=== PATIENT | female | born 1995 | race Two or more races ===

== ENCOUNTER 2021-07-19 21:37 | Emergency (ER) | payer OTHER ==
[~2021-07-19] VITALS: Ht 167.6 cm; Wt 57.6 kg
[2021-07-19] MEDS ORDERED: PRENATAL + DHA1 EAC1 PO (22:03)
== END 2021-07-20 00:03 | disposition home or self-care (01) ==
LOC: ER 21:37
DX: R10.13 Epigastric pain (principal)

== ENCOUNTER 2021-08-13 20:43 | Emergency (ER) | payer OTHER ==
[~2021-08-13] VITALS: Ht 170.2 cm; Wt 59.0 kg
[~2021-08-13 20:43] MED LIST: PRENATAL + DHA1 EAC1 PO
== END 2021-08-13 22:45 | disposition home or self-care (01) ==
LOC: ER 20:43
DX: O26.891 Other specified pregnancy related conditions, first trimester (principal); R51.9 Headache, unspecified; Z3A.13 13 weeks gestation of pregnancy

== ENCOUNTER 2021-12-28 12:00 | Outpatient (CLI) | payer OTHER | END 2021-12-28 12:44 | disposition home or self-care (01) | LOC: NST 12:00 | PROVIDERS: ATTEND Obstetrics & Gynecology | DX: Z34.83 Encounter for supervision of other normal pregnancy, third trimester (principal) ==

== ENCOUNTER 2022-02-02 04:20 | Inpatient (IN) | payer OTHER ==
[~2022-02-02] VITALS: Ht 152.4 cm; Wt 70.8 kg
== END 2022-02-04 10:12 | disposition home or self-care (01) | DRG 807 ==
LOC: OB/GYN 04:20 → LDR 04:20 → OB/GYN 12:03
PROVIDERS: ADMIT Obstetrics & Gynecology; ATTEND Obstetrics & Gynecology
PROC: 10E0XZZ Delivery of Products of Conception, External Approach (ICD-10-PCS; principal; 2022-02-02)
PROC: 0KQM0ZZ Repair Perineum Muscle, Open Approach (ICD-10-PCS; 2022-02-02)
PROC: 4A1HXCZ Monitoring of Products of Conception, Cardiac Rate, External Approach (ICD-10-PCS; 2022-02-02)
DX: O70.1 Second degree perineal laceration during delivery (principal); Z37.0 Single live birth; Z3A.37 37 weeks gestation of pregnancy; Z20.822 Contact with and (suspected) exposure to COVID-19